=== PATIENT | female | born 1975 | race Caucasian/White ===

== ENCOUNTER 2016-09-29 12:20 | Emergency (ER) | payer OTHER ==
[~2016-09-29] VITALS: Ht 167.6 cm; Wt 79.9 kg
[2016-09-29 12:23] VITALS: BP 118/63; PULSE 93; TEMP 36.5; O2SAT 100; Ht 167.6 cm; Wt 79.9 kg
[2016-09-29] MEDS ORDERED: FLUO40CA8 PO (12:32)
[2016-09-29] MEDS ORDERED: ZOLP10TA PO (12:32)
[2016-09-29] MEDS ORDERED: BUPR200T2 PO (12:32)
--- NOTE | 2016-09-29 13:08 | EMERGENCY ROOM VISIT NOTE ---
ED Visit Note First contact with patient: 12:30 CHIEF COMPLAINT: Low back pain HISTORY OF PRESENT ILLNESS: This 41-year-old female patient presents to the emergency department ambulatory complaining of pain in the low back which began just prior to arrival when she slipped and fell down the steps on her buttocks. The pain was gradual in onset, is now constant and worse with movement. The patient notes the pain as sharp and a 8/10. The patient has taken nothing for relief of the pain. The patient denies any bowel or bladder difficulties. There has been no leg numbness or weakness, and no change in sensation. No nausea or vomiting or abdominal pain. No chest pain or shortness of breath. The patient has not had prior back injuries. REVIEW OF SYSTEMS: No dysuria or increased urinary frequency. A 6 system review of systems was completed and pertinent positives and negatives are in the HPI. ALLERGIES: Iodinated contrast media, Bactrim MEDICATIONS: Prozac, Wellbutrin, Ambien PMH: Patient denies SOCIAL HISTORY: The patient lives locally with family PHYSICAL EXAM: VITALS: Vitals are noted on the nurse's note and reviewed by myself. No abnormalities noted. GENERAL: This is a 41-year-old female, in no acute distress, nondiaphoretic, well-developed well-nourished. SKIN: The skin was without rashes, erythema, edema, or bruising. Capillary refill less than 2 seconds. NECK: Supple without nuchal rigidity. No cervical spine tenderness. No paraspinous muscle tenderness. HEART: Regular rate and rhythm without murmurs gallops or rubs. LUNGS: Clear to auscultation bilaterally without wheezes, rales or rhonchi. MUSCULOSKELETAL: No muscle atrophy, erythema, or edema noted of the back. There is moderate tenderness over the lumbar spinous processes. There is no tenderness over the paraspinous muscles. There is no tenderness over the thoracic spine or paraspinous muscles. There are no muscle spasms present. The patient is slow to move around with maximum tenderness with extension. Negative straight leg raise test. NEURO: Patient was alert and oriented to person place and time. Normal sensation to light and sharp touch. Deep tendon reflexes 2+ in the lower extremities. Dorsalis pedis pulse 2+ bilaterally. Strength is 5/5 in the lower extremities bilaterally. EMERGENCY DEPARTMENT COURSE: The patient was seen and examined. Previous visits were reviewed. The patient states that she slipped and fell down the steps. There is no external sign of trauma, no ecchymosis, edema, abrasion. She has no neurologic deficit on exam or by history. An x-ray was obtained. There was no evidence for acute fracture or abnormality. I did review the prescription drug monitoring website. Although the patient told me she does not have a family doctor and does not take any other medications than listed above, she has had oxycodone regularly filled. When I reviewed further, the last prescription was filled on August 09 for 30 days by a family doctor in [place]. When the [facility] records were reviewed, it was found that the patient was dismissed from pain management. Also dismissed from her family doctor's practice. It is noted that she has a history of polypharmacy and drug abuse. I do not feel comfortable prescribing this patient narcotics. She will be offered nonnarcotic medication. The patient was encouraged to try ibuprofen. She should follow-up with her family doctor for further evaluation and management. She was also told that there is increased fecal load on x-ray. I advised the patient that the nurse with be with her shortly for discharge. However, the patient left without her discharge papers. DIFFERENTIAL DIAGNOSIS: Lumbar strain, degenerative disc disease, spondylolisthesis, herniated disc, spinal stenosis, osteoporosis, fracture, cauda equina syndrome, neoplasm, infection, inflammatory arthritis, among others. DIAGNOSTIC IMAGING [~ rep ct add3]] L-SPINE MIN 4 VIEWS ROUTINE HISTORY: Trauma. Pain. fall, low back pain COMPARISON: None. FINDINGS: There is no fracture. No subluxation. Disc spaces are preserved. IMPRESSION: No fracture or subluxation within the lumbar spine. COCCYX ONLY CLINICAL HISTORY: fall trauma. Pain. COMPARISON STUDY: None FINDINGS: Normal study IMPRESSION: Normal study Current/Historical Medications Scheduled Bupropion (Wellbutrin Sr), 200 MG PO DAILY Fluoxetine (Prozac), 40 MG PO DAILY Zolpidem Tartrate (Ambien), 10 MG PO HS Allergies Coded Allergies: Iodinated Diagnostic Agents (Unverified Adverse Reaction, Intermediate, RASH, 09/29/16) Sulfamethoxazole w/Trimethoprim (Unverified Adverse Reaction, Intermediate , RASH, 09/29/16) Vital Signs Date Time Temp Pulse Resp B/P (MAP) Pulse Ox O2 Delivery O2 Flow Rate FiO2 09/29/16 12:23 36.5 93 18 118/63 100 Room Air Departure Information Impression Primary Impression: Fall Additional Impression: Back pain Dispostion Home / Self-Care Condition GOOD Referrals No Doctor, Assigned (PCP) Patient Instructions Back Pain Relieve, ED Low Back Pain Injury, My [facility] Additional Instructions Rest off your feet for 1 to 2 days, ice for 24 hrs then heat to the low back. See your own doctor or an orthopedist in 2-3 days if you are not improving. Ibuprofen 600 mg every 6 hours if needed for the pain. Return if any problems with bowel or bladder function or if loss of sensation/movement of lower extremities. Problem Qualifiers Primary Impression: Fall Encounter type: initial encounter Qualified Codes: W19.XXXA - Unspecified fall, initial encounter Additional Impression: Back pain Back pain location: low back pain
--- NOTE | 2016-09-29 13:40 | DIAGNOSTIC IMAGING REPORT ---
COCCYX ONLY CLINICAL HISTORY: fall trauma. Pain. COMPARISON STUDY: None FINDINGS: Normal study IMPRESSION: Normal study The above report was generated using voice recognition software. It may contain grammatical, syntax or spelling errors. Electronically signed by: Vasile Metz M.D. 09/29/2016 1:38 PM Dictated Date/Time: 09/29/2016 1:38 PM
--- NOTE | 2016-09-29 13:41 | DIAGNOSTIC IMAGING REPORT ---
L-SPINE MIN 4 VIEWS ROUTINE HISTORY: Trauma. Pain. fall, low back pain COMPARISON: None. FINDINGS: There is no fracture. No subluxation. Disc spaces are preserved. IMPRESSION: No fracture or subluxation within the lumbar spine. The above report was generated using voice recognition software. It may contain grammatical, syntax or spelling errors. Electronically signed by: Vasile Metz M.D. 09/29/2016 1:39 PM Dictated Date/Time: 09/29/2016 1:39 PM
== END 2016-09-29 13:55 | disposition home or self-care (01) ==
LOC: MERGE 12:21 → C.EDB 12:21 → C.EDD 13:55
DX: M54.5 Low back pain (principal); W10.8XXA Fall (on) (from) other stairs and steps, initial encounter; Z79.899 Other long term (current) drug therapy; Z91.041 Radiographic dye allergy status; Z88.8 Allergy status to other drugs, medicaments and biological substances

== ENCOUNTER → 2016-10-09 | Outpatient (CLI) | payer OTHER ==
[~2016-10-09] MED LIST: BUPR200T2 PO; FLUO40CA8 PO; ZOLP10TA PO
[2016-10-09 13:16] LABS: BASO ABS # 0.05 K/uL (0-0.2); COMPLETE YES; EOS % 1.2 %; HEMATOCRIT 36.1 % (37-47); LYMPH ABS # 1.35 K/uL (1.2-3.4); MEAN CELL VOLUME 82.4 fL (80-100); MEAN CORPUSCULAR HEMOGLOBIN 24.2 pg (25-34); MEAN CORPUSCULAR HGB CONC 29.4 g/dl (32-36); MEAN PLATELET VOLUME 11.6 fL (7.4-10.4); MONO % 4.4 %; NEUT % 67.4 %; PLATELET COUNT 266 K/uL (130-400); RED BLOOD COUNT 4.38 M/uL (4.2-5.4); WHITE BLOOD COUNT 5.19 K/uL (4.8-10.8)
[2016-10-09 13:39] LABS: TOTAL IRON BINDING CAPACITY 515 mcg/dl (250-450)
== END | disposition home or self-care (01) ==
LOC: C.LABMFLN 10:19
PROVIDERS: ATTEND Physician Assistant
DX: Z98.890 Other specified postprocedural states (principal)

== ENCOUNTER → 2016-11-14 | Outpatient (CLI) | payer OTHER ==
[2016-11-14 13:07] LABS: BASO % 0.8 %; BASO ABS # 0.04 K/uL (0-0.2); COMPLETE YES; EOS % 1.9 %; HEMATOCRIT 34.5 % (37-47); IG% 0.2 %; LYMPH % 24.7 %; LYMPH ABS # 1.17 K/uL (1.2-3.4); MEAN CELL VOLUME 82.1 fL (80-100); MEAN CORPUSCULAR HEMOGLOBIN 24.3 pg (25-34); MEAN CORPUSCULAR HGB CONC 29.6 g/dl (32-36); MEAN PLATELET VOLUME 11.5 fL (7.4-10.4); MONO % 4.9 %; NEUT % 67.5 %; PLATELET COUNT 295 K/uL (130-400); WHITE BLOOD COUNT 4.74 K/uL (4.8-10.8)
[2016-11-14 13:22] LABS: TOTAL IRON BINDING CAPACITY 522 mcg/dl (250-450)
== END | disposition home or self-care (01) ==
LOC: C.LABMFLN 09:40
PROVIDERS: ATTEND Physician Assistant
DX: D64.9 Anemia, unspecified (principal)

== ENCOUNTER → 2017-02-10 | Outpatient (CLI) | payer OTHER ==
[2017-02-10 18:09] LABS: PARTIAL THROMBOPLASTIN RATIO 1.1; PROTHROMBIN TIME (PATIENT) 10.4 SECONDS (9.0-12.0)
[2017-02-10 18:29] LABS: BASO % 0.9 %; BASO ABS # 0.04 K/uL (0-0.2); COMPLETE YES; EOS % 2.5 %; HEMATOCRIT 35.4 % (37-47); LYMPH % 29.9 %; LYMPH ABS # 1.29 K/uL (1.2-3.4); MEAN CELL VOLUME 82.9 fL (80-100); MEAN CORPUSCULAR HEMOGLOBIN 25.8 pg (25-34); MEAN CORPUSCULAR HGB CONC 31.1 g/dl (32-36); MEAN PLATELET VOLUME 12.8 fL (7.4-10.4); NEUT % 60.7 %; PLATELET COUNT 209 K/uL (130-400); RED BLOOD COUNT 4.27 M/uL (4.2-5.4); WHITE BLOOD COUNT 4.32 K/uL (4.8-10.8)
[2017-02-10 18:40] LABS: ALT/SGPT 25 U/L (12-78); BLOOD UREA NITROGEN 13 mg/dl (7-18); BUN/CREATININE RATIO 11.8 (10-20); CALCIUM 8.7 mg/dl (8.5-10.1); CARBON DIOXIDE 25 mmol/L (21-32); CHLORIDE 108 mmol/L (98-107); CREATININE 1.14 mg/dl (0.60-1.20); GLUCOSE 104 mg/dl (70-99); SODIUM 140 mmol/L (136-145)
[2017-02-10 18:42] LABS: ALB/GLOB RATIO 1.3 (0.9-2); ALKALINE PHOSPHATASE 90 U/L (45-117); AST/SGOT 21 U/L (15-37)
== END | disposition home or self-care (01) ==
LOC: C.LABMFLN 12:57
PROVIDERS: ATTEND Physician Assistant
DX: D64.9 Anemia, unspecified (principal)

== ENCOUNTER → 2017-05-05 | Outpatient (CLI) | payer OTHER ==
[2017-05-05 17:55] LABS: BASO % 0.3 %; BASO ABS # 0.02 K/uL (0-0.2); EOS % 0.5 %; EOS ABS # 0.03 K/uL (0-0.5); HEMATOCRIT 40.9 % (37-47); HEMOGLOBIN 13.5 g/dL (12.0-16.0); IG# 0.01 K/uL (0.00-0.02); LYMPH % 26.6 %; LYMPH ABS # 1.65 K/uL (1.2-3.4); MEAN CELL VOLUME 88.9 fL (80-100); MEAN CORPUSCULAR HEMOGLOBIN 29.3 pg (25-34); MEAN PLATELET VOLUME 12.3 fL (7.4-10.4); MONO % 4.8 %; NEUT % 67.6 %; NEUT ABS # 4.19 K/uL (1.4-6.5); PLATELET COUNT 172 K/uL (130-400); RED CELL DISTRIBUTION WIDTH CV 14.6 % (11.5-14.5); RED CELL DISTRIBUTION WIDTH SD 47.3 fL (36.4-46.3)
== END | disposition home or self-care (01) ==
LOC: C.LABMFLN 11:51
PROVIDERS: ATTEND Internal Medicine Hematology & Oncology
DX: D50.9 Iron deficiency anemia, unspecified (principal)

== ENCOUNTER → 2017-06-24 | Outpatient (CLI) | payer OTHER | END | disposition home or self-care (01) | LOC: C.LABMFLN 12:33 | PROVIDERS: ATTEND Physician Assistant | DX: Z00.00 Encounter for general adult medical examination without abnormal findings (principal) ==